=== PATIENT | male | born 1960 | race Two or more races ===

== ENCOUNTER 2020-11-07 11:10 | Inpatient (IN) | payer OTHER ==
[2020-11-07 12:06] VITALS: BMI 26.9
[2020-11-07] MEDS ORDERED: LOPERAMIDE HCL 2 MG CAPSULE PO PRN (18:33)
[2020-11-07] MEDS ORDERED: P-EPHED 60MG/TRIPROLIDI 2.5MG TABLET PO PRN (18:33)
[2020-11-07] MEDS ORDERED: MAGNESIUM HYDROX 2400MG/30ML ORAL SUSPENSION 30 ML CUP PO PRN (18:33)
[2020-11-07] MEDS ORDERED: IBUPROFEN 400 MG TABLET (FP) PO PRN (18:33)
[2020-11-07] MEDS ORDERED: MAGNESIUM CITRATE 300 ML BOTTLE PO PRN (18:33)
[2020-11-07] MEDS ORDERED: guaiFENesin 200 MG/10 ML 10 ML UNIT-DOSE CUPS PO PRN (18:33)
[2020-11-07] MEDS ORDERED: MAG HYDROX/AL HYDROX/SIMETH 30 ML UNIT-DOSE CUP PO PRN (18:33)
[2020-11-07] MEDS ORDERED: ACETAMINOPHEN 325 MG TABLET (FP) PO PRN (18:33)
[2020-11-07] MEDS ORDERED: TUBERCULIN PPD 5 TU/0.1ML VIAL ID ONE (20:17)
[2020-11-07] MEDS: THIAMINE HCL 100 MG TABLET (FP) PO SCH (21:25)
[2020-11-07] MEDS: EMTRICITAB/RILPIVIRI/TENOF ALA (ODEFSEY) TABLET PO SCH (21:25)
[2020-11-07] MEDS: MELATONIN 5 MG TABLETS PO SCH (21:43)
[2020-11-07] MEDS: ATORVASTATIN CA 40 MG TABLET (FP) PO SCH (22:02)
[2020-11-08] MEDS: metFORMIN HCL 500 MG TABLET (FP) PO SCH (06:24)
[2020-11-08 10:04] LABS: HEMATOCRIT 40.2 % (35.4-49); HEMOGLOBIN 13.2 GM/dL (11.7-16.9); MCH 28.5 pg (25.7-33.7); MCHC 32.9 g/dl (32.0-35.9); MEAN CELL VOLUME 86.8 fl (80-96); MEAN PLT VOLUME 9.1 fl (7.5-11.1); PLATELET COUNT 294 K/MM3 (134-434); RBC 4.63 M/mm3 (4.00-5.60); RDW 17.2 % (11.9-15.9); WHITE BLOOD COUNT 4.3 K/mm3 (4.0-10.0)
[2020-11-08] MEDS: ATORVASTATIN CA 40 MG TABLET (FP) PO SCH (10:24)
[2020-11-08] MEDS: PRENATAL VITAMINS W/ FOLIC ACID TABLET (FP) PO SCH (10:24)
[2020-11-08 10:25] LABS: ALBUMIN 3.8 g/dl (3.4-5.0)
[2020-11-08 10:26] LABS: BLOOD UREA NITROGEN 20.3 mg/dL (7-18)
[2020-11-08 10:29] LABS: CREATININE 1.2 mg/dL (0.55-1.3)
[2020-11-08 10:30] LABS: BILIRUBIN,TOTAL 0.6 mg/dL (0.2-1); TOT PROT 7.6 g/dl (6.4-8.2)
[2020-11-08 10:52] LABS: CALCIUM 9.4 mg/dL (8.5-10.1)
[2020-11-08 20:34] LABS: PH,URINE 6.5 (5.0-8.0); URINE APPEARANCE CLEAR; URINE BILIRUBIN NEGATIVE (NEGATIVE); URINE COLOR YELLOW; URINE GLUCOSE (UA) NEGATIVE (NEGATIVE); URINE KETONE NEGATIVE (NEGATIVE); URINE LEUK ESTERASE NEGATIVE (NEGATIVE); URINE NITRITE NEGATIVE (NEGATIVE); URINE PROTEIN NEGATIVE (NEGATIVE); URINE UROBILINOGEN 0.2 mg/dL (0.2-1.0)
[2020-11-08] MEDS: THIAMINE HCL 100 MG TABLET (FP) PO SCH (21:25)
[2020-11-08] MEDS: MELATONIN 5 MG TABLETS PO SCH (21:25)
[2020-11-08] MEDS: DIVALPROEX SODIUM 500 MG TABLET E.C. PO SCH (21:26)
[2020-11-08] MEDS ORDERED: PT OWN MED DRAWER 7, Y5N ONE (21:27)
[2020-11-08] MEDS: OLANZapine 5 MG TABLET PO SCH (21:27)
[2020-11-08] MEDS: EMTRICITAB/RILPIVIRI/TENOF ALA (ODEFSEY) TABLET PO SCH (23:41)
[2020-11-09] MEDS: metFORMIN HCL 500 MG TABLET (FP) PO SCH (06:17)
[2020-11-09] MEDS: PRENATAL VITAMINS W/ FOLIC ACID TABLET (FP) PO SCH (10:32)
[2020-11-09] MEDS: ATORVASTATIN CA 40 MG TABLET (FP) PO SCH (10:33)
[2020-11-09] MEDS: OLANZapine 5 MG TABLET PO SCH (21:10)
[2020-11-09] MEDS: DIVALPROEX SODIUM 500 MG TABLET E.C. PO SCH (21:10)
[2020-11-09] MEDS: MELATONIN 5 MG TABLETS PO SCH (21:10)
[2020-11-09] MEDS: THIAMINE HCL 100 MG TABLET (FP) PO SCH (21:10)
[2020-11-09] MEDS: EMTRICITAB/RILPIVIRI/TENOF ALA (ODEFSEY) TABLET PO SCH (21:11)
[2020-11-10] MEDS: metFORMIN HCL 500 MG TABLET (FP) PO SCH (06:32)
[2020-11-10] MEDS: PRENATAL VITAMINS W/ FOLIC ACID TABLET (FP) PO SCH (10:21)
[2020-11-10] MEDS: ATORVASTATIN CA 40 MG TABLET (FP) PO SCH (10:21)
[2020-11-10] MEDS: MELATONIN 5 MG TABLETS PO SCH (21:40)
[2020-11-10] MEDS: EMTRICITAB/RILPIVIRI/TENOF ALA (ODEFSEY) TABLET PO SCH (21:40)
[2020-11-10] MEDS: THIAMINE HCL 100 MG TABLET (FP) PO SCH (21:40)
[2020-11-10] MEDS: DIVALPROEX SODIUM 500 MG TABLET E.C. PO SCH (21:40)
[2020-11-10] MEDS: OLANZapine 5 MG TABLET PO SCH (21:40)
[2020-11-11 06:05] LABS: SARS-CoV-2 NAA Not Detected (Not Detected)
[2020-11-11] MEDS: metFORMIN HCL 500 MG TABLET (FP) PO SCH (06:47)
[2020-11-11] MEDS: ATORVASTATIN CA 40 MG TABLET (FP) PO SCH (10:27)
[2020-11-11] MEDS: PRENATAL VITAMINS W/ FOLIC ACID TABLET (FP) PO SCH (10:27)
[2020-11-11] MEDS: EMTRICITAB/RILPIVIRI/TENOF ALA (ODEFSEY) TABLET PO SCH (21:14)
[2020-11-11] MEDS: DIVALPROEX SODIUM 500 MG TABLET E.C. PO SCH (21:14)
[2020-11-11] MEDS: MELATONIN 5 MG TABLETS PO SCH (21:14)
[2020-11-11] MEDS: OLANZapine 5 MG TABLET PO SCH (21:14)
[2020-11-11] MEDS: THIAMINE HCL 100 MG TABLET (FP) PO SCH (21:14)
[2020-11-12] MEDS: metFORMIN HCL 500 MG TABLET (FP) PO SCH (06:58)
[2020-11-12] MEDS: PRENATAL VITAMINS W/ FOLIC ACID TABLET (FP) PO SCH (10:24)
[2020-11-12] MEDS: ATORVASTATIN CA 40 MG TABLET (FP) PO SCH (10:24)
[2020-11-12 10:56] LABS: ALBUMIN 3.4 g/dl (3.4-5.0); BASO % 0.5 % (0-2.0); BILIRUBIN,TOTAL 0.3 mg/dL (0.2-1); CALCIUM 9.1 mg/dL (8.5-10.1); EOS % 2.9 % (0-4.5); HEMATOCRIT 37.1 % (35.4-49); HEMOGLOBIN 12.3 GM/dL (11.7-16.9); LYMPH % 36.1 % (8-40); MCH 28.8 pg (25.7-33.7); MCHC 33.2 g/dl (32.0-35.9); MEAN CELL VOLUME 86.9 fl (80-96); MEAN PLT VOLUME 8.8 fl (7.5-11.1); MONO % 12.1 % (3.8-10.2); NEUT % 48.4 % (42.8-82.8); PLATELET COUNT 238 K/MM3 (134-434); RBC 4.27 M/mm3 (4.00-5.60); RDW 17.1 % (11.9-15.9); WHITE BLOOD COUNT 5.7 K/mm3 (4.0-10.0)
[2020-11-12 10:57] LABS: BLOOD UREA NITROGEN 13.8 mg/dL (7-18)
[2020-11-12 11:01] LABS: TOT PROT 6.7 g/dl (6.4-8.2)
[2020-11-12] MEDS: MELATONIN 5 MG TABLETS PO SCH (21:23)
[2020-11-12] MEDS: THIAMINE HCL 100 MG TABLET (FP) PO SCH (21:23)
[2020-11-12] MEDS: hydrOXYzine PAMOATE 25 MG CAPSULE (FP) PO PRN (21:23)
[2020-11-12] MEDS: DIVALPROEX SODIUM 500 MG TABLET E.C. PO SCH (21:23)
[2020-11-12] MEDS: EMTRICITAB/RILPIVIRI/TENOF ALA (ODEFSEY) TABLET PO SCH (21:23)
[2020-11-12] MEDS: OLANZapine 5 MG TABLET PO SCH (21:23)
[2020-11-13] MEDS: metFORMIN HCL 500 MG TABLET (FP) PO SCH (07:35)
[2020-11-13] MEDS: ATORVASTATIN CA 40 MG TABLET (FP) PO SCH (09:52)
[2020-11-13] MEDS: PRENATAL VITAMINS W/ FOLIC ACID TABLET (FP) PO SCH (09:52)
[2020-11-13] MEDS: THIAMINE HCL 100 MG TABLET (FP) PO SCH (21:30)
[2020-11-13] MEDS: MELATONIN 5 MG TABLETS PO SCH (21:30)
[2020-11-13] MEDS: DIVALPROEX SODIUM 500 MG TABLET E.C. PO SCH (21:31)
[2020-11-13] MEDS: EMTRICITAB/RILPIVIRI/TENOF ALA (ODEFSEY) TABLET PO SCH (21:31)
[2020-11-13] MEDS: OLANZapine 5 MG TABLET PO SCH (21:31)
[2020-11-14] MEDS: metFORMIN HCL 500 MG TABLET (FP) PO SCH (06:02)
[2020-11-14] MEDS ORDERED: ATORVASTATIN CA 20 MG TABLET (FP) ONE (08:54)
[2020-11-14] MEDS: PRENATAL VITAMINS W/ FOLIC ACID TABLET (FP) PO SCH (10:34)
[2020-11-14] MEDS: ATORVASTATIN CA 40 MG TABLET (FP) PO SCH (10:34)
[2020-11-14] MEDS: THIAMINE HCL 100 MG TABLET (FP) PO SCH (21:11)
[2020-11-14] MEDS: DIVALPROEX SODIUM 500 MG TABLET E.C. PO SCH (21:11)
[2020-11-14] MEDS: EMTRICITAB/RILPIVIRI/TENOF ALA (ODEFSEY) TABLET PO SCH (21:11)
[2020-11-14] MEDS: MELATONIN 5 MG TABLETS PO SCH (21:11)
[2020-11-14] MEDS: OLANZapine 5 MG TABLET PO SCH (21:11)
[2020-11-15] MEDS: metFORMIN HCL 500 MG TABLET (FP) PO SCH (06:27)
[2020-11-15] MEDS: PRENATAL VITAMINS W/ FOLIC ACID TABLET (FP) PO SCH (10:18)
[2020-11-15] MEDS: ATORVASTATIN CA 40 MG TABLET (FP) PO SCH (10:18)
[2020-11-15] MEDS: EMTRICITAB/RILPIVIRI/TENOF ALA (ODEFSEY) TABLET PO SCH (21:22)
[2020-11-15] MEDS: OLANZapine 5 MG TABLET PO SCH (21:22)
[2020-11-15] MEDS: MELATONIN 5 MG TABLETS PO SCH (21:22)
[2020-11-15] MEDS: THIAMINE HCL 100 MG TABLET (FP) PO SCH (21:22)
[2020-11-15] MEDS: DIVALPROEX SODIUM 500 MG TABLET E.C. PO SCH (21:22)
[2020-11-16] MEDS: metFORMIN HCL 500 MG TABLET (FP) PO SCH (06:20)
[2020-11-16] MEDS: PRENATAL VITAMINS W/ FOLIC ACID TABLET (FP) PO SCH (10:32)
[2020-11-16] MEDS: ATORVASTATIN CA 40 MG TABLET (FP) PO SCH (10:32)
[2020-11-16] MEDS: EMTRICITAB/RILPIVIRI/TENOF ALA (ODEFSEY) TABLET PO SCH (21:07)
[2020-11-16] MEDS: THIAMINE HCL 100 MG TABLET (FP) PO SCH (21:07)
[2020-11-16] MEDS: MELATONIN 5 MG TABLETS PO SCH (21:07)
[2020-11-16] MEDS: DIVALPROEX SODIUM 500 MG TABLET E.C. PO SCH (21:07)
[2020-11-16] MEDS: OLANZapine 5 MG TABLET PO SCH (21:07)
[2020-11-17] MEDS: metFORMIN HCL 500 MG TABLET (FP) PO SCH (07:09)
[2020-11-17] MEDS: PRENATAL VITAMINS W/ FOLIC ACID TABLET (FP) PO SCH (10:17)
[2020-11-17] MEDS: ATORVASTATIN CA 40 MG TABLET (FP) PO SCH (10:17)
[2020-11-17] MEDS: THIAMINE HCL 100 MG TABLET (FP) PO SCH (21:32)
[2020-11-17] MEDS: MELATONIN 5 MG TABLETS PO SCH (21:32)
[2020-11-17] MEDS: DIVALPROEX SODIUM 500 MG TABLET E.C. PO SCH (21:32)
[2020-11-17] MEDS: OLANZapine 5 MG TABLET PO SCH (21:32)
[2020-11-17] MEDS: EMTRICITAB/RILPIVIRI/TENOF ALA (ODEFSEY) TABLET PO SCH (21:33)
[2020-11-18] MEDS: metFORMIN HCL 500 MG TABLET (FP) PO SCH (06:06)
[2020-11-18] MEDS: ATORVASTATIN CA 40 MG TABLET (FP) PO SCH (11:08)
[2020-11-18] MEDS: PRENATAL VITAMINS W/ FOLIC ACID TABLET (FP) PO SCH (11:08)
[2020-11-18] MEDS: THIAMINE HCL 100 MG TABLET (FP) PO SCH (21:17)
[2020-11-18] MEDS: DIVALPROEX SODIUM 500 MG TABLET E.C. PO SCH (21:17)
[2020-11-18] MEDS: MELATONIN 5 MG TABLETS PO SCH (21:17)
[2020-11-18] MEDS: hydrOXYzine PAMOATE 25 MG CAPSULE (FP) PO PRN (21:17)
[2020-11-18] MEDS: OLANZapine 5 MG TABLET PO SCH (21:17)
[2020-11-18] MEDS: EMTRICITAB/RILPIVIRI/TENOF ALA (ODEFSEY) TABLET PO SCH (21:18)
[2020-11-19] MEDS: metFORMIN HCL 500 MG TABLET (FP) PO SCH (06:07)
[2020-11-19] MEDS: PRENATAL VITAMINS W/ FOLIC ACID TABLET (FP) PO SCH (09:32)
[2020-11-19] MEDS: ATORVASTATIN CA 40 MG TABLET (FP) PO SCH (09:32)
[2020-11-19] MEDS: DIVALPROEX SODIUM 500 MG TABLET E.C. PO SCH (21:15)
[2020-11-19] MEDS: THIAMINE HCL 100 MG TABLET (FP) PO SCH (21:15)
[2020-11-19] MEDS: EMTRICITAB/RILPIVIRI/TENOF ALA (ODEFSEY) TABLET PO SCH (21:15)
[2020-11-19] MEDS: MELATONIN 5 MG TABLETS PO SCH (21:15)
[2020-11-19] MEDS: OLANZapine 5 MG TABLET PO SCH (21:15)
[2020-11-20] MEDS: metFORMIN HCL 500 MG TABLET (FP) PO SCH (06:50)
[2020-11-20] MEDS: ATORVASTATIN CA 40 MG TABLET (FP) PO SCH (09:51)
[2020-11-20] MEDS: PRENATAL VITAMINS W/ FOLIC ACID TABLET (FP) PO SCH (09:51)
[2020-11-20] MEDS: DIVALPROEX SODIUM 500 MG TABLET E.C. PO SCH (21:21)
[2020-11-20] MEDS: MELATONIN 5 MG TABLETS PO SCH (21:21)
[2020-11-20] MEDS: EMTRICITAB/RILPIVIRI/TENOF ALA (ODEFSEY) TABLET PO SCH (21:21)
[2020-11-20] MEDS: OLANZapine 5 MG TABLET PO SCH (21:21)
[2020-11-20] MEDS: THIAMINE HCL 100 MG TABLET (FP) PO SCH (21:21)
[2020-11-20] MEDS: hydrOXYzine PAMOATE 25 MG CAPSULE (FP) PO PRN (21:22)
[2020-11-21] MEDS: metFORMIN HCL 500 MG TABLET (FP) PO SCH (06:12)
[2020-11-21] MEDS: PRENATAL VITAMINS W/ FOLIC ACID TABLET (FP) PO SCH (09:44)
[2020-11-21] MEDS: hydrOXYzine PAMOATE 25 MG CAPSULE (FP) PO PRN (09:44)
[2020-11-21] MEDS: ATORVASTATIN CA 40 MG TABLET (FP) PO SCH (12:05)
[2020-11-21] MEDS: MELATONIN 5 MG TABLETS PO SCH (21:32)
[2020-11-21] MEDS: OLANZapine 5 MG TABLET PO SCH (21:32)
[2020-11-21] MEDS: THIAMINE HCL 100 MG TABLET (FP) PO SCH (21:32)
[2020-11-21] MEDS: DIVALPROEX SODIUM 500 MG TABLET E.C. PO SCH (21:32)
[2020-11-21] MEDS: EMTRICITAB/RILPIVIRI/TENOF ALA (ODEFSEY) TABLET PO SCH (21:32)
[2020-11-22] MEDS: metFORMIN HCL 500 MG TABLET (FP) PO SCH (06:49)
[2020-11-22] MEDS: ATORVASTATIN CA 40 MG TABLET (FP) PO SCH (10:08)
[2020-11-22] MEDS: PRENATAL VITAMINS W/ FOLIC ACID TABLET (FP) PO SCH (10:08)
[2020-11-22] MEDS: THIAMINE HCL 100 MG TABLET (FP) PO SCH (21:33)
[2020-11-22] MEDS: OLANZapine 5 MG TABLET PO SCH (21:33)
[2020-11-22] MEDS: DIVALPROEX SODIUM 500 MG TABLET E.C. PO SCH (21:33)
[2020-11-22] MEDS: MELATONIN 5 MG TABLETS PO SCH (21:33)
[2020-11-22] MEDS: EMTRICITAB/RILPIVIRI/TENOF ALA (ODEFSEY) TABLET PO SCH (21:34)
[2020-11-23] MEDS: metFORMIN HCL 500 MG TABLET (FP) PO SCH (06:26)
[2020-11-23] MEDS: ATORVASTATIN CA 40 MG TABLET (FP) PO SCH (10:05)
[2020-11-23] MEDS: PRENATAL VITAMINS W/ FOLIC ACID TABLET (FP) PO SCH (10:06)
[2020-11-23] MEDS: OLANZapine 5 MG TABLET PO SCH (21:20)
[2020-11-23] MEDS: THIAMINE HCL 100 MG TABLET (FP) PO SCH (21:20)
[2020-11-23] MEDS: MELATONIN 5 MG TABLETS PO SCH (21:20)
[2020-11-23] MEDS: EMTRICITAB/RILPIVIRI/TENOF ALA (ODEFSEY) TABLET PO SCH (21:20)
[2020-11-23] MEDS: DIVALPROEX SODIUM 500 MG TABLET E.C. PO SCH (21:20)
[2020-11-24] MEDS: metFORMIN HCL 500 MG TABLET (FP) PO SCH (06:01)
[2020-11-24] MEDS: PRENATAL VITAMINS W/ FOLIC ACID TABLET (FP) PO SCH (09:50)
[2020-11-24] MEDS: ATORVASTATIN CA 40 MG TABLET (FP) PO SCH (09:50)
[2020-11-24] MEDS: DIVALPROEX SODIUM 500 MG TABLET E.C. PO SCH (21:29)
[2020-11-24] MEDS: OLANZapine 5 MG TABLET PO SCH (21:29)
[2020-11-24] MEDS: THIAMINE HCL 100 MG TABLET (FP) PO SCH (21:29)
[2020-11-24] MEDS: EMTRICITAB/RILPIVIRI/TENOF ALA (ODEFSEY) TABLET PO SCH (21:29)
[2020-11-24] MEDS: MELATONIN 5 MG TABLETS PO SCH (21:29)
[2020-11-25] MEDS: metFORMIN HCL 500 MG TABLET (FP) PO SCH (06:02)
[2020-11-25] MEDS: PRENATAL VITAMINS W/ FOLIC ACID TABLET (FP) PO SCH (10:03)
[2020-11-25] MEDS: ATORVASTATIN CA 40 MG TABLET (FP) PO SCH (10:03)
[2020-11-25] MEDS: EMTRICITAB/RILPIVIRI/TENOF ALA (ODEFSEY) TABLET PO SCH (21:29)
[2020-11-25] MEDS: OLANZapine 5 MG TABLET PO SCH (21:29)
[2020-11-25] MEDS: DIVALPROEX SODIUM 500 MG TABLET E.C. PO SCH (21:29)
[2020-11-25] MEDS: THIAMINE HCL 100 MG TABLET (FP) PO SCH (21:29)
[2020-11-25] MEDS: MELATONIN 5 MG TABLETS PO SCH (21:29)
[2020-11-26] MEDS: metFORMIN HCL 500 MG TABLET (FP) PO SCH (06:00)
[2020-11-26] MEDS: ATORVASTATIN CA 40 MG TABLET (FP) PO SCH (10:05)
[2020-11-26] MEDS: PRENATAL VITAMINS W/ FOLIC ACID TABLET (FP) PO SCH (10:05)
[2020-11-26] MEDS: OLANZapine 5 MG TABLET PO SCH (21:39)
[2020-11-26] MEDS: DIVALPROEX SODIUM 500 MG TABLET E.C. PO SCH (21:39)
[2020-11-26] MEDS: MELATONIN 5 MG TABLETS PO SCH (21:39)
[2020-11-26] MEDS: THIAMINE HCL 100 MG TABLET (FP) PO SCH (21:39)
[2020-11-26] MEDS: EMTRICITAB/RILPIVIRI/TENOF ALA (ODEFSEY) TABLET PO SCH (21:40)
[2020-11-27] MEDS: metFORMIN HCL 500 MG TABLET (FP) PO SCH (06:05)
[2020-11-27] MEDS: PRENATAL VITAMINS W/ FOLIC ACID TABLET (FP) PO SCH (09:59)
[2020-11-27] MEDS: ATORVASTATIN CA 40 MG TABLET (FP) PO SCH (09:59)
[2020-11-27] MEDS: THIAMINE HCL 100 MG TABLET (FP) PO SCH (21:24)
[2020-11-27] MEDS: EMTRICITAB/RILPIVIRI/TENOF ALA (ODEFSEY) TABLET PO SCH (21:24)
[2020-11-27] MEDS: DIVALPROEX SODIUM 500 MG TABLET E.C. PO SCH (21:24)
[2020-11-27] MEDS: OLANZapine 5 MG TABLET PO SCH (21:24)
[2020-11-27] MEDS: MELATONIN 5 MG TABLETS PO SCH (21:24)
[2020-11-28] MEDS: metFORMIN HCL 500 MG TABLET (FP) PO SCH (06:02)
[2020-11-28] MEDS ORDERED: ATORVASTATIN CA 20 MG TABLET (FP) ONE (08:33)
[2020-11-28] MEDS: ATORVASTATIN CA 40 MG TABLET (FP) PO SCH (10:02)
[2020-11-28] MEDS: PRENATAL VITAMINS W/ FOLIC ACID TABLET (FP) PO SCH (10:02)
[2020-11-28] MEDS: THIAMINE HCL 100 MG TABLET (FP) PO SCH (21:28)
[2020-11-28] MEDS: MELATONIN 5 MG TABLETS PO SCH (21:29)
[2020-11-28] MEDS: OLANZapine 5 MG TABLET PO SCH (21:29)
[2020-11-28] MEDS: DIVALPROEX SODIUM 500 MG TABLET E.C. PO SCH (21:29)
[2020-11-28] MEDS: EMTRICITAB/RILPIVIRI/TENOF ALA (ODEFSEY) TABLET PO SCH (21:29)
[2020-11-29] MEDS: metFORMIN HCL 500 MG TABLET (FP) PO SCH (06:13)
[2020-11-29] MEDS: ATORVASTATIN CA 40 MG TABLET (FP) PO SCH (09:56)
[2020-11-29] MEDS: PRENATAL VITAMINS W/ FOLIC ACID TABLET (FP) PO SCH (09:56)
[2020-11-29] MEDS: MELATONIN 5 MG TABLETS PO SCH (21:12)
[2020-11-29] MEDS: DIVALPROEX SODIUM 500 MG TABLET E.C. PO SCH (21:12)
[2020-11-29] MEDS: OLANZapine 5 MG TABLET PO SCH (21:12)
[2020-11-29] MEDS: THIAMINE HCL 100 MG TABLET (FP) PO SCH (21:12)
[2020-11-29] MEDS: EMTRICITAB/RILPIVIRI/TENOF ALA (ODEFSEY) TABLET PO SCH (21:12)
[2020-11-30] MEDS: metFORMIN HCL 500 MG TABLET (FP) PO SCH (06:14)
[2020-11-30] MEDS: PRENATAL VITAMINS W/ FOLIC ACID TABLET (FP) PO SCH (10:16)
[2020-11-30] MEDS: ATORVASTATIN CA 40 MG TABLET (FP) PO SCH (10:16)
[2020-11-30] MEDS ORDERED: COVID-19 VAC,AD26(JANSSEN)/PF 0.5 ML IM ONE (12:00)
[2020-11-30] MEDS: DIVALPROEX SODIUM 500 MG TABLET E.C. PO SCH (21:38)
[2020-11-30] MEDS: OLANZapine 5 MG TABLET PO SCH (21:38)
[2020-11-30] MEDS: MELATONIN 5 MG TABLETS PO SCH (21:38)
[2020-11-30] MEDS: EMTRICITAB/RILPIVIRI/TENOF ALA (ODEFSEY) TABLET PO SCH (21:39)
[2020-11-30] MEDS: THIAMINE HCL 100 MG TABLET (FP) PO SCH (21:39)
[2020-12-01 06:39] VITALS: TEMP 97.3
[2020-12-01] MEDS: metFORMIN HCL 500 MG TABLET (FP) PO SCH (07:01)
[2020-12-01] MEDS: ATORVASTATIN CA 40 MG TABLET (FP) PO SCH (10:09)
[2020-12-01] MEDS: PRENATAL VITAMINS W/ FOLIC ACID TABLET (FP) PO SCH (10:09)
[2020-12-01] MEDS: OLANZapine 5 MG TABLET PO SCH (21:25)
[2020-12-01] MEDS: MELATONIN 5 MG TABLETS PO SCH (21:25)
[2020-12-01] MEDS: DIVALPROEX SODIUM 500 MG TABLET E.C. PO SCH (21:25)
[2020-12-01] MEDS: EMTRICITAB/RILPIVIRI/TENOF ALA (ODEFSEY) TABLET PO SCH (21:26)
[2020-12-01] MEDS: THIAMINE HCL 100 MG TABLET (FP) PO SCH (21:26)
[2020-12-02] MEDS: metFORMIN HCL 500 MG TABLET (FP) PO SCH (06:03)
[2020-12-02 07:22] VITALS: BP 126/85; PULSE 107
[2020-12-02] MEDS ORDERED: PT OWN MED DRAWER 7, Y5N ONE (09:30)
[2020-12-02] MEDS: PRENATAL VITAMINS W/ FOLIC ACID TABLET (FP) PO SCH (09:31)
[2020-12-02] MEDS: ATORVASTATIN CA 40 MG TABLET (FP) PO SCH (09:31)
== END 2020-12-02 09:32 | disposition home or self-care (01) | DRG 895 ==
LOC: YASAS 11:10 → Y3W 17:11
PROVIDERS: ADMIT Allergy & Immunology; ATTEND Allergy & Immunology
PROC: HZ42ZZZ Group Counseling for Substance Abuse Treatment, Cognitive-Behavioral (ICD-10-PCS; principal; 2020-11-07)
DX: F14.20 Cocaine dependence, uncomplicated (principal); F10.10 Alcohol abuse, uncomplicated; F31.9 Bipolar disorder, unspecified; F60.3 Borderline personality disorder; Z21 Asymptomatic human immunodeficiency virus [HIV] infection status; E78.5 Hyperlipidemia, unspecified; E11.9 Type 2 diabetes mellitus without complications; I10 Essential (primary) hypertension
CPT/HCPCS: 0031A; 36415; 80053; 80164; 81003; 82962; 85025; 85027; 86593; 86780; 91303; 93005; 93010; C9803; U0003; U0005